=== PATIENT | female | born 1940 | race Caucasian/White ===

== ENCOUNTER → 2016-10-28 | Outpatient (CLI) | payer OTHER ==
[~2016-10-28] VITALS: Ht 157.5 cm; Wt 74.2 kg
[~2016-10-28] MED LIST: ALPR0.5T PO; AMLO-110 PO; ASPI81TA21 PO; ATOR-14 PO; ATOR-22 PO; B-COCAP2 PO; CEFAZOLIN 1000MG/55 ML D5W IV SCH; CITA20TA9 PO; CITA40TA12 PO; FISHOIL PO; FOLI400T41 PO; GEMF600T PO; HYDC25 PO; LACTATED RINGER'S 1000ML 1,000 ML IV SCH; LEVO100T35 PO; LEVO75TA PO; LOSA100T65 PO; LPRUNK PO; MAGN400T6 PO; METO100T14 PO; MULT-513 PO; OMEP20TA PO; SELENIUM PO
[2016-10-28 14:37] VITALS: Ht 157.5 cm; Wt 74.2 kg
--- NOTE | 2016-10-28 15:08 | PAT Medication Instructions ---
Service Date Oct 28, 2016. Current Home Medication List Alprazolam (Xanax), 0.5 MG PO Q12HR PRN Aspirin Enteric Coated (Ecotrin Or Generic), 81 MG PO HS Atorvastatin (Lipitor), 20 MG PO QPM Citalopram Hydrobromide (Celexa), 40 MG PO HS Gemfibrozil (Lopid), 600 MG PO BID Hydrochlorothiazide (Hctz *), 1 TAB PO QAM Levothyroxine Sodium (Synthroid), 75 MCG PO QAM Magnesium Oxide (Mag-Ox), 400 MG PO QAM Metoprolol Tartrate (Lopressor Unknown Dose), 100 MG PO QAM Metoprolol Tartrate (Lopressor Unknown Dose), 50 MG PO QPM Omeprazole (Omeprazole), 1 TAB PO QAM Medication Instructions For Your Scheduled Surgery - Hold the following medications the morning of surgery: Hydrochlorothiazide (Hctz *), 1 TAB PO QAM Gemfibrozil (Lopid), 600 MG PO BID - Take the following medications the morning of surgery with a sip of water: Omeprazole (Omeprazole), 1 TAB PO QAM Metoprolol Tartrate (Lopressor Unknown Dose), 100 MG PO QAM Magnesium Oxide (Mag-Ox), 400 MG PO QAM Levothyroxine Sodium (Synthroid), 75 MCG PO QAM Alprazolam (Xanax), 0.5 MG PO Q12HR PRN (if needed) - Hold the following medications as scheduled the night before surgery: Gemfibrozil (Lopid), 600 MG PO BID - Take the following medications as scheduled the night before surgery: Metoprolol Tartrate (Lopressor Unknown Dose), 50 MG PO QPM Citalopram Hydrobromide (Celexa), 40 MG PO HS Atorvastatin (Lipitor), 20 MG PO QPM Alprazolam (Xanax), 0.5 MG PO Q12HR PRN (if needed) Aspirin Enteric Coated (Ecotrin Or Generic), 81 MG PO HS (okay to continue per surgeon) If you have any questions please call us at [phone] or [phone] or [phone]
[2016-10-28 16:19] LABS: BASO % 0.6 %; BASO ABS # 0.04 K/uL (0-0.2); COMPLETE YES; EOS % 2.9 %; HEMATOCRIT 38.4 % (37-47); IG% 0.3 %; LYMPH ABS # 1.78 K/uL (1.2-3.4); MEAN CELL VOLUME 86.5 fL (80-100); MEAN CORPUSCULAR HEMOGLOBIN 29.3 pg (25-34); MEAN CORPUSCULAR HGB CONC 33.9 g/dl (32-36); MEAN PLATELET VOLUME 8.4 fL (7.4-10.4); NEUT % 56.2 %; PLATELET COUNT 420 K/uL (130-400); RED BLOOD COUNT 4.44 M/uL (4.2-5.4)
[2016-10-28 16:19] LABS: URINE APPEARANCE CLEAR (CLEAR); URINE BILIRUBIN NEG (NEG); URINE COLOR YELLOW; URINE EPITHELIAL CELL AUTO 20-30 /lpf (0-5); URINE NITRITE NEG (NEG); URINE PH 7.5 (4.5-7.5); UROBILINOGEN NEG (NEG)
[2016-10-28 16:21] LABS: MANUAL MICROSCOPIC REQUIRED? NO; REVIEW REQ? NO
--- NOTE | 2016-10-28 16:21 | DIAGNOSTIC IMAGING REPORT ---
CHEST PREADMISSION(PA/LAT) CLINICAL HISTORY: 75 years-old Female presenting with preadmission chest x-ray. TECHNIQUE: PA and lateral views of the chest were obtained. COMPARISON: None. FINDINGS: Cardiomediastinal silhouette normal. Lungs and pleural spaces clear. Osseous structures and upper abdomen normal. IMPRESSION: 1. No acute cardiopulmonary disease. Electronically signed by: Gerhard Townsend M.D. 10/28/2016 4:20 PM Dictated Date/Time: 10/28/2016 4:19 PM
[2016-10-28 16:27] LABS: BUN/CREATININE RATIO 11.2 (10-20); CREATININE 0.73 mg/dl (0.60-1.20); POTASSIUM 3.5 mmol/L (3.5-5.1)
== END | disposition home or self-care (01) ==
LOC: C.LAB 08:00 → EDSTATUS 11-16 12:15
PROVIDERS: ATTEND Orthopaedic Surgery Orthopaedic Surgery of the Spine
DX: Z01.810 Encounter for preprocedural cardiovascular examination (principal); Z01.812 Encounter for preprocedural laboratory examination

== ENCOUNTER 2017-03-08 10:14 | Inpatient (IN) | payer OTHER ==
[2017-01-26 13:41] VITALS: BMI 29.0
[~2017-03-08] VITALS: Ht 157.5 cm; Wt 72.3 kg
[2017-03-08] VITALS (9 sets, daily range): BP systolic 105–180; BP diastolic 60–99; PULSE 66–82; TEMP 36.2–37.1; O2SAT 93–100; Ht 157.5 cm; Wt 72.3 kg
[~2017-03-08 10:14] MED LIST changes: -ATOR-14 PO; +ATROPINE SULFATE 0.1 MG/ML 5ML SYR IV PRN; -B-COCAP2 PO; -CEFAZOLIN 1000MG/55 ML D5W IV SCH; -CITA20TA9 PO; +EpHEDrine SULFATE INJ 50 MG/ML AMP IV PRN; +FENTANYL CITRATE INJ 50 MCG/1 ML 2 ML VIAL IV PRN; -FISHOIL PO; -FOLI400T41 PO; -HYDC25 PO; +HYDROmorphone INJ 1 MG/ML SYR IV PRN; +LABETALOL HCL IV 5 MG/ML 20ML IV PRN; -LEVO100T35 PO; -LPRUNK PO; +MEPERIDINE HCL 25 MG/ML CARP IV PRN; -MULT-513 PO; +ONDANSETRON INJ 2 MG/ML 2 ML VIAL IV PRN; -SELENIUM PO
[2017-03-08] MEDS ORDERED: MIDAZOLAM HCL 1 MG/ML 2ML VIAL ONE (10:34)
[2017-03-08] MEDS ORDERED: FENTANYL CITRATE INJ 50 MCG/1 ML 2 ML VIAL ONE ×3 (10:34→12:38)
[2017-03-08] MEDS ORDERED: IBUP-103 PO (10:39)
--- NOTE | 2017-03-08 10:43 | History & Physical Bridge Note ---
H&P Re-Evaluation Bridge Note: I have examined the patient, reviewed the History & Physical and in the interval since the performance of the History & Physical I have noted the following changes of clinical significance: No changes noted
--- NOTE | 2017-03-08 10:45 | History and Physical ---
History & Physical Date Mar 08, 2017. Chief Complaint Back and leg pain History of Present Illness The patient is a 76 year old female with complaints of back and leg pain Additional History Hepatic Disease: No Endocrine Disorder: No Kidney Disease: No Hypertension: Yes Heart Disease: No Bleeding Tendencies: No Infectious Diseases: No Allergies Coded Allergies: Sulfa Drugs (Verified Allergy, Unknown, RASH , 03/08/17) Home Medications Scheduled Alprazolam (Xanax), 0.5 MG PO Q12HR PRN Amlodipine (Norvasc), 5 MG PO QAM Aspirin Enteric Coated (Ecotrin Or Generic), 81 MG PO HS Atorvastatin (Lipitor), 20 MG PO HS Citalopram Hydrobromide (Celexa), 40 MG PO HS Gemfibrozil (Lopid), 600 MG PO BID Ibuprofen Tab (Advil), 400-600 MG PO Q6H Levothyroxine Sodium (Synthroid), 75 MCG PO QAM Losartan Potassium (Cozaar), 100 MG PO QAM Magnesium Oxide (Mag-Ox), 400 MG PO QAM Metoprolol Tartrate (Lopressor) (Lopressor), 100 MG PO QAM Metoprolol Tartrate (Lopressor) (Lopressor), 50 MG PO HS Omeprazole (Omeprazole), 20 MG PO QAM Physical Examination Skin: warm/dry, no rash Eyes: normal inspection, EOMI, sclerae normal ENT: normal ENT inspection, pharynx normal Head: normocephalic, atraumatic Neck: supple, no adenopathy, trachea midline Respiratory/Chest: lungs clear, normal breath sounds, no respiratory distress Cardiovascular: regular rate, rhythm, no edema, no murmur Abdomen / GI: normal bowel sounds, non tender Back: normal inspection Extremities: normal inspection, normal range of motion Neurologic/Psych: no motor/sensory deficits, alert, normal reflexes, oriented x 3 Diagnosis Lumbar spinal stenosis with spondylolisthesis Plan of Treatment L3 to L5 lumbar laminectomy decompression with pedicle screw fixation placement of interbody device. Posterior lateral fusion L3 to L5 with autograft allograft and BMP
[2017-03-08] MEDS ORDERED: BUPIVACAINE/EPINEPHRINE 0.5% MPF 1:200,000 30 ML VIAL ONE (11:05)
[2017-03-08] MEDS ORDERED: BACITRACIN 50000 UNIT VIAL ONE (11:06)
[2017-03-08] MEDS ORDERED: CEFAZOLIN SOD 2000MG/10 ML IV PUSH IV ONE (11:14)
[2017-03-08] MEDS ORDERED: NURSING VERBAL MED ORDER STA (11:26)
[2017-03-08] MEDS ORDERED: HYDROmorphone INJ 2 MG/ML SYR/VIAL ONE ×2 (11:47→13:22)
[2017-03-08] MEDS ORDERED: PROPOFOL IV EMULSION 10 MG/ML 20 ML VIAL IV ONE (12:01)
[2017-03-08] MEDS ORDERED: LIDOCAINE HCL 2% 2 ML VIAL (20MG/ML) ONE (12:01)
[2017-03-08] MEDS ORDERED: DEXAMETHASONE SOD INJ 4 MG/ML VIAL ONE (12:01)
[2017-03-08] MEDS ORDERED: FLOSEAL HEMOSTATIC MATRIX 10ML TOP ONE (13:14)
[2017-03-08] MEDS ORDERED: LORAZEPAM INJ 0.5 MG in SYRINGE 0 ML IV PRN (13:15)
[2017-03-08] MEDS ORDERED: ALUMINUM/MAGNESIUM SUSP 30 ML UDC PO PRN (13:15)
[2017-03-08] MEDS ORDERED: MAGNESIUM HYDROXIDE SUSP 30 ML UDC PO PRN (13:15)
[2017-03-08] MEDS ORDERED: METOCLOPRAMIDE HCL INJ 5 MG/ML 2 ML VIAL IV PRN (13:15)
[2017-03-08] MEDS ORDERED: ONDANSETRON INJ 2 MG/ML 2 ML VIAL IV PRN (13:15)
[2017-03-08] MEDS ORDERED: PROMETHAZINE HCL INJ 12.5 MG in SODIUM CHLORIDE 0.9% 50ML 50 ML IV PRN (13:15)
[2017-03-08] MEDS ORDERED: DO NOT ADMINISTER FLU VACCINE PRN ×3 (13:15)
[2017-03-08] MEDS ORDERED: hydrOXYzine HCL 25 MG TAB PO PRN (13:15)
[2017-03-08] MEDS ORDERED: BISACODYL 10 MG SUPP PR PRN (13:15)
[2017-03-08] MEDS ORDERED: ACETAMINOPHEN 500 MG TAB PO PRN (13:15)
[2017-03-08] MEDS ORDERED: SODIUM CHLORIDE 0.9% 1000ML 1,000 ML IV SCH (13:15)
[2017-03-08] MEDS ORDERED: ACETAMINOPHEN IV 100 ML IV PRN (13:15)
[2017-03-08] MEDS ORDERED: DO NOT ADMINISTER PNEUMOCOCCAL VACCINE PRN ×2 (13:15)
[2017-03-08] MEDS ORDERED: FAMOTIDINE 20 MG TAB PO PRN (13:15)
[2017-03-08] MEDS ORDERED: NALOXONE HCL 0.4 MG/1 ML VIAL/CARP IV PRN ×2 (13:15)
[2017-03-08] MEDS ORDERED: LORAZEPAM 0.5 MG TAB PO PRN (13:15)
[2017-03-08] MEDS ORDERED: SOD PHOSPHATE/SOD BIPHOSPHATE ENEMA 132 ML BTL PR PRN (13:15)
--- NOTE | 2017-03-08 13:21 | [facility] Operative Report ---
Operative Report Operative Date Mar 08, 2017. Pre-Operative Diagnosis Spinal Stenosis, Spondylolisthesis Post-Operative Diagnosis Spinal Stenosis, Spondylolisthesis Procedure(s) Performed #1 lumbar decompression medial facetectomies foraminotomies L2 3 L3 4 L4 5. #2 posterior spinal fusion L3 4 L4 5. #3 placement posterior segmental instrumentation L3 4 L4 5. #4 interbody fusion L4 5. #5 placement peek cage 11 x 22 mm L4 5. #6 placement of locally harvested morcellized autograft in the posterior lateral gutters. #7 placement infuse collagen sponge combined Master graft in the posterior lateral gutters with ostial amp in the interbody space. Surgeon Dr. Davis Passport Application Examiner Surgeon(s) MISTY Matson Estimated Blood Loss 425 ml Findings Severe spinal stenosis with spondylolisthesis Specimens none per surgeon Description of Procedure Patient was met with preoperatively case discussed all questions addressed. After informed consent was obtained patient was taken to the operative suite underwent intubation placed in a prone position the Laurent table on top Dariel frame. All bony prominences were well-padded eyes inspected to ensure there is no external pressure placed upon them. This point the lumbar spine was prepped and draped nostril fashion. Sharp dissection with the assistance of Bovie cautery was performed onto an exposing the lamina and transverse processes of L3 L4-L5 bilaterally. From a caudal to cephalad fashion complete laminectomy of L4 L3 and partial laminectomy of L2 was performed addressing severe lateral recess and foraminal stenosis. After this complete pedicle screws are placed in L3 L4 L5 bilaterally with assistance of fluoroscopy the purposes kedar placed. Through a transforaminal approach on the left complete discectomy of L4 5 was performed and plate created to subcortical bleeding bone and a 11 x 22 mm peek cage filled with ostial amp tapped in position. The rods were then compressed locked and final position bilaterally. A cross-link was locked in position. Transverse processes of L3 L4-L5 burred to subcortical bleeding bone. Infuse collagen sponge mask graft locally harvested morcellized autograft was placed in the posterior lateral gutters. 15 round AUGUSTUS drain inserted. Incision was then closed with 1 Vicryl in the fascia 2-0 Vicryl subcutaneous tediously 4 Monocryl for final skin closure Steri-Strips sterile dressings placed. Patient we can taken to PACU in stable condition. Please note Haley Chaney was present throughout the entire procedure involved in patient positioning complex portions of the surgery and final skin closure. I attest to the content of the Intraoperative Record and any orders documented therein. Any exceptions are noted below.
[2017-03-08] MEDS ORDERED: ONDANSETRON INJ 2 MG/ML 2 ML VIAL ONE (13:23)
[2017-03-08] MEDS ORDERED: GLYCOPYRROLATE INJ 0.2 MG/ML VIAL ONE (13:23)
[2017-03-08] MEDS ORDERED: NEOSTIGMINE METHYLSULFATE 1 MG/ML 10ML VIAL ONE (13:23)
[2017-03-08] MEDS ORDERED: KETOROLAC TROMETHAMINE 30 MG/ML VIAL ONE (13:23)
[2017-03-08] MEDS ORDERED: ROCURONIUM BROMIDE 10 MG/ML 5 ML VIAL IV ONE (13:23)
--- NOTE | 2017-03-08 13:30 | DIAGNOSTIC IMAGING REPORT ---
INTRAOPERATIVE LUMBAR SPINE 2 VIEWS CLINICAL HISTORY: Spinal fusion COMPARISON STUDY: Outside MRI dated 09/24/2016 FINDINGS: 20 seconds of fluoroscopic time was utilized. 2 intraoperative fluoroscopic spot films are provided for interpretation. There are postsurgical changes of a discectomy and interbody fusion at the L4-5 level. There is a grade 1 spondylolisthesis of L3 on L4. There is posterior spinal fusion with pedicle screws at the L3, L4 and L5 levels with adjoining spinal rods. IMPRESSION: Postsurgical changes as described above. Electronically signed by: Glenn Chappell M.D. 03/08/2017 1:29 PM Dictated Date/Time: 03/08/2017 1:28 PM
[2017-03-08] MEDS: HYDROmorphone HCL 0.5MG/ML 50 ML CASSETTE IV PRN ×3 (14:12→23:03)
[2017-03-08] MEDS ORDERED: ALBUT/IPRATROP 3MG/0.5MG NEB 3 ML VIAL INH ONE (14:30)
--- NOTE | 2017-03-08 14:53 | Anesthesiology Progress Note ---
Anesthesia Post Op Note Date & Time Mar 08, 2017 at 14:53 Vital Signs Pain Intensity: 0 Vital Signs Past 12 Hours Date Time Temp Pulse Resp B/P (MAP) Pulse Ox O2 Delivery O2 Flow Rate FiO2 03/08/17 14:45 68 16 108/65 99 Nasal Cannula 4 03/08/17 14:35 69 16 112/54 99 Nasal Cannula 4 03/08/17 14:27 66 14 100 Mask 13.0 03/08/17 14:25 63 16 132/71 100 Oxymask 15 03/08/17 14:15 66 14 132/62 100 Oxymask 15 03/08/17 14:05 72 12 158/85 99 Oxymask 15 03/08/17 13:55 63 12 127/64 100 Oxymask 15 03/08/17 13:45 66 13 128/62 100 Oxymask 15 03/08/17 13:36 36.8 59 14 110/65 96 Oxymask 15 03/08/17 10:25 36.5 69 20 180/99 96 Room Air Notes Mental Status: alert / awake / arousable, participated in evaluation Pt Amnestic to Procedure: Yes Nausea / Vomiting: adequately controlled Pain: adequately controlled Airway Patency, RR, SpO2: stable & adequate BP & HR: stable & adequate Hydration State: stable & adequate Anesthetic Complications: no major complications apparent
[2017-03-08] MEDS: SODIUM CHLORIDE 0.9% 1000ML 1,000 ML IV SCH ×2 (16:18→23:37)
[2017-03-08] MEDS ORDERED: INFLUENZA VACCINE HIGH DOSE 65+ 0.5 ML SYR IM. ONE (16:45)
[2017-03-08] MEDS ORDERED: INFLUENZA ADMINISTRATION CHARGE ONE (16:45)
[2017-03-08] MEDS ORDERED: NURSING DECISION MEDICATION ORDER SCH (18:45)
[2017-03-08] MEDS ORDERED: COUGH DROP (SUGAR FREE) LOZ 24 LOZ/1 BOX PO PRN (19:00)
[2017-03-08] MEDS: DEXAMETHASONE INJ 6 MG in SYRINGE 0 ML IV SCH (19:34)
[2017-03-08] MEDS: CEFAZOLIN IV 2,000 MG in SYRINGE 0 ML IV SCH (19:34)
[2017-03-08] MEDS: ATORVASTATIN 20 MG TAB PO SCH (20:48)
[2017-03-08] MEDS: METOPROLOL TARTRATE 50 MG TAB PO SCH (20:48)
[2017-03-08] MEDS: GEMFIBROZIL 600 MG TAB PO SCH (20:48)
[2017-03-08] MEDS: DOCUSATE SODIUM/SENNA 50/8.6MG TAB PO SCH (20:48)
[2017-03-08] MEDS: CITALOPRAM 40 MG TAB PO SCH (20:48)
[2017-03-08] MEDS: ASPIRIN 81 MG ECTAB PO SCH (20:48)
[2017-03-09] VITALS (8 sets, daily range): BP systolic 100–133; BP diastolic 65–79; PULSE 67–84; TEMP 36.4–37.2; O2SAT 91–94
[2017-03-09] MEDS: DEXAMETHASONE INJ 6 MG in SYRINGE 0 ML IV SCH ×2 (04:11→12:04)
[2017-03-09] MEDS: CEFAZOLIN IV 2,000 MG in SYRINGE 0 ML IV SCH (04:11)
[2017-03-09] MEDS: LEVOTHYROXINE 75 MCG TAB PO SCH (05:28)
[2017-03-09] MEDS ORDERED: NURSING DECISION MEDICATION ORDER SCH (05:45)
[2017-03-09] MEDS ORDERED: DC PCA SCH (06:00)
[2017-03-09] MEDS ORDERED: HYDROmorphone INJ 0.5 MG/0.5 ML SYR IV PRN (06:00)
[2017-03-09 06:22] LABS: HEMATOCRIT 26.7 % (37-47); IG% 0.3 %; LYMPH % 4.8 %; LYMPH ABS # 0.65 K/uL (1.2-3.4); MEAN CELL VOLUME 88.7 fL (80-100); MEAN CORPUSCULAR HEMOGLOBIN 29.2 pg (25-34); MEAN PLATELET VOLUME 8.3 fL (7.4-10.4); MONO % 3.4 %; NEUT % 91.5 %; PLATELET COUNT 261 K/uL (130-400); RED BLOOD COUNT 3.01 M/uL (4.2-5.4); WHITE BLOOD COUNT 13.65 K/uL (4.8-10.8)
[2017-03-09 06:54] LABS: COMPLETE YES
[2017-03-09 07:01] LABS: BUN/CREATININE RATIO 19.5 (10-20); CREATININE 0.7 mg/dl (0.60-1.20)
--- NOTE | 2017-03-09 07:51 | Anesthesiology Progress Note ---
Anesthesia Post Op Note Date & Time Mar 09, 2017 at 07:51 Vital Signs Pain Intensity: 0.0 Vital Signs Past 12 Hours Date Time Temp Pulse Resp B/P (MAP) Pulse Ox O2 Delivery O2 Flow Rate FiO2 03/09/17 07:31 37.0 78 16 116/68 (84) 93 Room Air 03/09/17 03:48 36.9 84 17 122/72 (89) 94 Room Air 03/08/17 23:35 Room Air 03/08/17 23:20 37.0 82 16 120/74 (89) 95 Room Air 03/08/17 20:37 36.7 81 18 120/60 (80) 93 Room Air Notes Mental Status: alert / awake / arousable, participated in evaluation Pt Amnestic to Procedure: Yes Nausea / Vomiting: adequately controlled Pain: adequately controlled Airway Patency, RR, SpO2: stable & adequate BP & HR: stable & adequate Hydration State: stable & adequate Anesthetic Complications: no major complications apparent
[2017-03-09] MEDS: GEMFIBROZIL 600 MG TAB PO SCH ×2 (08:41→20:39)
[2017-03-09] MEDS: LOSARTAN POTASSIUM 50 MG TAB PO SCH (08:42)
[2017-03-09] MEDS: AMLODIPINE BESYLATE 5 MG TAB PO SCH (08:42)
[2017-03-09] MEDS: MAGNESIUM OXIDE 400 MG TAB PO SCH (08:42)
[2017-03-09] MEDS: PANTOprazole SOD 40 MG TAB PO SCH (08:43)
[2017-03-09] MEDS: METOPROLOL TARTRATE 100 MG TAB PO SCH (08:43)
--- NOTE | 2017-03-09 10:01 | Clinical Documentation Query ---
MELANIE Pollard : CLINICAL DOCUMENTATION QUERIES QUERY 1 OF 2 Patient is a 76 year old female who underwent lumbar decompression, posterior and interbody fusion with cage, autograft and Master graft. Preoperative hemoglobin and hematocrit were 13.0 g/dl and 38.4 g/dl on 10/28/16. POD #1, repeat values are 8.8 g/dl and 26.7%. EBL for the procedure was 425 ml's with subsequently documented losses totaling an additional 360 ml's to date. She is being monitored with serial hematology and I/O including drain outputs. In your clinical opinion is this patient being managed for: ( ) Acute blood loss anemia ( ) Not Agree ( ) Other explanation of clinical findings (Please Explain) ( ) Unable to determine (Please Define) ( ) Need to Discuss The medical record reflects the following clinical findings, treatment, and risk factors. Clinical Indicators: As above Treatment:She is being monitored with serial hematology and I/O including drain outputs. Risk Factors: Perioperative blood losses QUERY 2 OF 2 H&P notes only a history of hypertension in addition to lumbar stenosis. However, home medication list includes the following: Alprazolam (Xanax), 0.5 MG PO Q12HR PRN Amlodipine (Norvasc), 5 MG PO QAM Aspirin Enteric Coated (Ecotrin Or Generic), 81 MG PO HS Atorvastatin (Lipitor), 20 MG PO HS Citalopram Hydrobromide (Celexa), 40 MG PO HS Gemfibrozil (Lopid), 600 MG PO BID Ibuprofen Tab (Advil), 400-600 MG PO Q6H Levothyroxine Sodium (Synthroid), 75 MCG PO QAM Losartan Potassium (Cozaar), 100 MG PO QAM Magnesium Oxide (Mag-Ox), 400 MG PO QAM Metoprolol Tartrate (Lopressor) (Lopressor), 100 MG PO QAM Metoprolol Tartrate (Lopressor) (Lopressor), 50 MG PO HS Omeprazole (Omeprazole), 20 MG PO QAM In your clinical opinion is this patient being managed for: ( ) OA, Anxiety, Depression, GERD, Hypercholesterolemia, Hypothyroidism ( ) Not Agree ( ) Other explanation of clinical findings (Please Explain) ( ) Unable to determine (Please Define) ( ) Need to Discuss The medical record reflects the following clinical findings, treatment, and risk factors. Clinical Indicators: As above Treatment: As above Risk Factors: Age Please clarify and document your clinical opinion in the progress notes and discharge summary. Terms such as "probable", "suspected", "likely", "questionable", "possible", or "still to be ruled out" are acceptable. IF IN AGREEMENT, YOU MUST DOCUMENT ABOVE DIAGNOSTIC STATEMENT IN DAILY PROGRESS NOTES AND DISCHARGE SUMMARY. This document is not part of the patient's record. Thank You, Duncan Erazo, RN [phone]
[2017-03-09] MEDS ORDERED: RXC5 PO (11:01)
--- NOTE | 2017-03-09 11:01 | Discharge Instructions ---
Discharge Instructions Date of Service Mar 09, 2017. Admission Reason for Admission: Lumbar Spinal Stenosis Discharge Discharge Diagnosis / Problem: lumbar stenosis Discharge Goals Goal(s): Improve function Activity Recommendations Activity Limitations: per Instructions/Follow-up section . Instructions / Follow-Up Instructions / Follow-Up ACTIVITY RECOMMENDATIONS: SELF CARE INSTRUCTIONS AFTER THORACIC/LUMBAR FUSIONS 1. You may walk to your tolerance. It is good exercise for your legs and back. Expect some back and intermittent leg aches and pains. 2. You may perform "counter-top" level activities (make a sandwich, delaney with a project, etc.). 3. No bending or lifting of more than 10 pounds or back twisting of any nature (roll like a log when turning in bed). 4. You may ride in a car for 20-30 minutes at a time. No driving until after your first visit with your doctor. 5. Frequent changes of position and restricting sitting to 30 minutes at a time will help limit the amount of back spasms and stiffness you may experience. 6. You may discontinue the use of ambulatory aids (cane, crutches, etc.) once your strength and confidence allow. 7. You may concession stand attendant the shower and let water strike your incision when you arrive home at least once daily. Do not take a tub bath, sit in a hot tub or go into a swimming pool until after your first recheck in the office. SPECIAL CARE INSTRUCTIONS: VERY IMPORTANT TO READ AND REVIEW A. Your surgical incision has been closed with a cosmetic suture under the skin that will dissolve in about 6 weeks. In 14 days, you can use a pair of clean scissors and cut the suture that is left outside of the skin at the ends of your incision. 1. The small skin tapes can be removed 7 days after surgery if they have not fallen off by that point. 2. You may keep the wound open to air as much as possible to promote healing after post-op day number 5 unless told otherwise by your doctor. 3. If you think the wound looks like it is becoming infected (redness or worsening drainage) and/or you are experiencing fever, chill or worsening back pain and muscle spasms, contact the office so that we may evaluate you as soon as possible. B. Complications are uncommon, but please contact us if you have any signs or symptoms of: 1. wound infection (fever higher than 102.5 degrees F, redness, separation of wound, drainage, or increasing pain from the incision) 2. blood clots in legs (pain, swelling, redness and warmth in legs) 3. urinary tract infection (fever higher than 102.5 degrees F, burning upon urination or increased frequency of urination) 4. nerve problems (inability to walk on your toes or heels, numbness, loss of bowel or bladder control) 5. any other symptoms that concern you C. Please call the office at if you have any concerns or questions about your operation or recovery. D. No smoking! Smoking drastically decreases the chance of a solid fusion. E. Do not take any anti-inflammatory medications (Indocin, Advil, Motrin, Aspirin, Naprosyn, etc.) as these may inhibit the chance of a solid fusion. Tylenol is okay to take for pain. MANAGING PAIN AFTER SPINAL SURGERY 1. Narcotic medication is intended for short-term use and will be provided for surgical pain. Surgical pain usually lasts for a period of 4-6 weeks. Narcotic medication includes Percocet, Vicodin, Darvocet, Tylenol #3 or Lortab. 2. Longer-term pain is more appropriately treated with non-narcotic medication such as Tylenol ES. 3. Muscle spasm is not appropriately treated with narcotics. Muscle relaxers such as Soma, Flexeril or Skelaxin can be used along with Tylenol ES. 4. Remember that we all live with some "aches and pains". This is not unusual or uncommon after an injury or as we get older. a. Back pain is expected and may include muscle spasms for 4 to 6 weeks after surgery. The pain should gradually improve. If the pain worsens for no apparent reason, please contact the office. b. Intermittent leg pain may also be experienced and should not be concerned about unless it worsens for no apparent reason. If so, please contact the office. 5. We will provide appropriate medication within the normal guidelines of their prescribed use. We will also be very cautious and aware of potential abuse and extended duration of patients' medication needs. a. Pain medications are for your comfort and to assist with sleep and rest so that the tissue can heal. They are not provided in order to return to normal activity and should not be used through the day. To do so or worsening pain at night can result from ongoing tissue damage and development of tolerance to the prescribed medicine. 6. Please allow 2-3 days to process refills. Prescriptions will not be mailed but must be picked up at the office. FOLLOW UP VISIT: Keep your scheduled follow-up appointment. Any questions, please call the office at . Current Hospital Diet Patient's current hospital diet: Regular Diet Discharge Diet Recommended Diet: Regular Diet Procedures Procedures Performed: L3-L5 Lumbar Laminectomy, Decompression, Pedicle Screw Fixation, Placement of Interbody Device; L3-L5 Posterolateral Fusion, Application of Allograft, Bone Morphogenetic Protein Pending Studies Studies pending at discharge: no Medical Emergencies . Who to Call and When: Medical Emergencies: If at any time you feel your situation is an emergency, please call 911 immediately. . Non-Emergent Contact Non-Emergency issues call your: Primary Care Provider . "Provider Documentation" section prepared by Brennen Davis. . VTE Core Measure Inpt VTE Proph given/why not?: Caesar Andrade, [facility]
--- NOTE | 2017-03-09 11:17 | Progress Note ---
Progress Note Date of Service Mar 09, 2017. Progress Note Patient is status post lumbar decompression fusion. Today she was complaining without difficulty. Leg symptoms markedly improved. Vital signs are stable. AUGUSTUS drain decreasing appropriate. Assessment status post lumbar depression fusion replant this time anticipate discharge home the next day or so.
[2017-03-09] MEDS: OXYCODONE HCL IR 5 MG TAB (IMMEDIATE RELEASE) PO PRN ×2 (12:18→23:53)
[2017-03-09] MEDS: ATORVASTATIN 20 MG TAB PO SCH (21:43)
[2017-03-09] MEDS: METOPROLOL TARTRATE 50 MG TAB PO SCH (21:43)
[2017-03-09] MEDS: ASPIRIN 81 MG ECTAB PO SCH (21:44)
[2017-03-09] MEDS: DOCUSATE SODIUM/SENNA 50/8.6MG TAB PO SCH (21:44)
[2017-03-09] MEDS: CITALOPRAM 40 MG TAB PO SCH (21:44)
[2017-03-10] VITALS (11 sets, daily range): BP systolic 107–138; BP diastolic 61–80; PULSE 66–78; TEMP 36.4–37.3; O2SAT 93–100
[2017-03-10] MEDS: POLYETHYLENE (MIRALAX) 17 GM PACK PO SCH ×3 (06:03→17:24)
[2017-03-10] MEDS: LEVOTHYROXINE 75 MCG TAB PO SCH (06:03)
[2017-03-10] MEDS: LOSARTAN POTASSIUM 50 MG TAB PO SCH (09:00)
[2017-03-10] MEDS: GEMFIBROZIL 600 MG TAB PO SCH ×2 (09:00→21:07)
[2017-03-10] MEDS: MAGNESIUM OXIDE 400 MG TAB PO SCH (09:01)
[2017-03-10] MEDS: METOPROLOL TARTRATE 100 MG TAB PO SCH (09:01)
[2017-03-10] MEDS: AMLODIPINE BESYLATE 5 MG TAB PO SCH (09:02)
[2017-03-10] MEDS: PANTOprazole SOD 40 MG TAB PO SCH (09:02)
--- NOTE | 2017-03-10 12:57 | Progress Note ---
Progress Note Date of Service Mar 10, 2017. Progress Note Patient is postop day #2 lumbar decompression fusion. Her back pain is controlled. Again leg symptoms improved. She denies any weakness or shortness of breath. On exam she sitting in chair at bedside as good strength testing appears comfortable assessment status post lumbar depression fusion replant this time will continue to advance her bowel regiment monitor her AUGUSTUS output hopefully discharge home tomorrow.
[2017-03-10] MEDS ORDERED: LORAZEPAM 2 MG/ML 1 ML VIAL **EMERGENCY USE ONE (14:43)
[2017-03-10] MEDS ORDERED: NURSING VERBAL MED ORDER ONE ×2 (14:45→17:30)
[2017-03-10 14:58] LABS: HEMATOCRIT 27.2 % (37-47); MEAN CELL VOLUME 89.8 fL (80-100); MEAN PLATELET VOLUME 8.2 fL (7.4-10.4); PLATELET COUNT 316 K/uL (130-400); RED BLOOD COUNT 3.03 M/uL (4.2-5.4); WHITE BLOOD COUNT 19.69 K/uL (4.8-10.8)
[2017-03-10] MEDS ORDERED: LORAZEPAM INJ 2 MG in SYRINGE 1 ML IV ONE (15:00)
--- NOTE | 2017-03-10 15:06 | DIAGNOSTIC IMAGING REPORT ---
CHEST ONE VIEW PORTABLE CLINICAL HISTORY: Respiratory arrest COMPARISON STUDY: 10/28/2016 FINDINGS: The heart is mildly enlarged. There is aortic tortuosity. There is mild mediastinal fullness a finding which may be secondary to the AP portable technique. There is no lobar consolidation. There is no failure. There are no pleural effusions.[ IMPRESSION: AP portable study. No evidence of focal pulmonary consolidation. Mild mediastinal fullness, likely secondary to the AP technique. No evidence of overt failure. Electronically signed by: Glenn Chappell M.D. 03/10/2017 3:05 PM Dictated Date/Time: 03/10/2017 3:04 PM
[2017-03-10 15:08] LABS: INR 0.9 (0.9-1.1); PARTIAL THROMBOPLASTIN RATIO 0.9
[2017-03-10 15:10] LABS: MEAN CORPUSCULAR HGB CONC 33.5 g/dl (32-36)
--- NOTE | 2017-03-10 15:17 | DIAGNOSTIC IMAGING REPORT ---
CT HEAD WITHOUT CONTRAST (CT) CLINICAL HISTORY: CODE PURPLE UNRESPONSIVE PATIENT. MENTAL STATUS CHANGE. COMPARISON STUDY: No previous studies for comparison. TECHNIQUE: Axial CT of the brain is performed from the vertex to the skull base. IV contrast was not administered for this examination. A dose lowering technique was utilized adhering to the principles of ALARA. CT DOSE: 638.56 mGycm FINDINGS: No intra or extra-axial mass lesions are visualized. There is no CT evidence of acute cortical infarction. There is no evidence of midline shift. There is no acute hemorrhage. No calvarial fractures are visualized. If the patient's neurological status does not improve, an MRI of the brain might be considered in follow-up. There is no evidence of pathologic ventricular dilatation. There is no evidence of acute sinusitis IMPRESSION: No acute intracranial findings Electronically signed by: Glenn Chappell M.D. 03/10/2017 3:16 PM Dictated Date/Time: 03/10/2017 3:15 PM
[2017-03-10 15:22] LABS: ALT/SGPT 17 U/L (12-78); BLOOD UREA NITROGEN 19 mg/dl (7-18); BUN/CREATININE RATIO 19.6 (10-20); CALCIUM 8.3 mg/dl (8.5-10.1); CARBON DIOXIDE 24 mmol/L (21-32); CHLORIDE 95 mmol/L (98-107); CREATININE 0.98 mg/dl (0.60-1.20); GLUCOSE 127 mg/dl (70-99); MAGNESIUM 2.2 mg/dl (1.8-2.4); POTASSIUM 3.7 mmol/L (3.5-5.1); SODIUM 131 mmol/L (136-145)
[2017-03-10 15:28] LABS: ALKALINE PHOSPHATASE 56 U/L (45-117); AST/SGOT 29 U/L (15-37)
[2017-03-10] MEDS ORDERED: OPTIRAY 320 IV PRN (16:15)
--- NOTE | 2017-03-10 16:19 | DIAGNOSTIC IMAGING REPORT ---
CTA ANGIOGRAPHY OF THE HEAD CLINICAL HISTORY: Probable cerebrovascular accident. COMPARISON STUDY: Head CT performed earlier today. TECHNIQUE: Helical axial images of the head were obtained following uneventful intravenous administration of 113 cc of Optiray 320. A dose lowering technique was utilized adhering to the principles of ALARA. FINDINGS: The CTA of the neck will be reported separately. No acute intracranial hemorrhage, midline shift or mass effect is present. Ventricular system is normal. Basilar cisterns are patent. There are no extra-axial collections. Nasogastric tube is partially imaged. The bilateral M1, M2, A1 and A2 segments are patent. There is an anterior communicating artery. No abrupt vessel cutoff is identified. There is mild atherosclerotic plaque within the bilateral cavernous carotids. The posterior circulation is also intact. No aneurysm or dissection is identified within the intracranial vessels. IMPRESSION: Unremarkable CTA of the head. No vessel cut off or intracranial aneurysm. Electronically signed by: Doug Antoine M.D. 03/10/2017 4:18 PM Dictated Date/Time: 03/10/2017 4:12 PM
--- NOTE | 2017-03-10 16:22 | DIAGNOSTIC IMAGING REPORT ---
CT ANGIOGRAM OF THE NECK CLINICAL HISTORY: Change in mental status. COMPARISON STUDY: No priors. TECHNIQUE: Following the IV administration of 113 of Optiray 320, CT angiogram of the neck was performed from the aortic arch to the skull base. Images are reviewed in the axial, sagittal, and coronal planes. 3-D MIPS images are created and assessed. IV contrast was administered without complication. All measurements were calculated based on NASCET criteria. A dose lowering technique was utilized adhering to the principles of ALARA. The examination is modestly degraded by motion artifact. CT DOSE: 481.06 mGy.cm FINDINGS: Thoracic aorta: Visualized portions of the thoracic aorta are normal in caliber. The aortic arch demonstrates standard 3-vessel anatomy. Subclavian arteries: Widely patent bilaterally. Right carotid arterial system: The right common carotid artery is widely patent, as are the right internal and external carotid arteries. Left carotid arterial system: The left common carotid artery as well as the left internal and external carotid arteries are widely patent. Vertebral arteries: The vertebral arteries are widely patent and codominant. Intracranial vasculature: Intracranial vessels at the skull base are patent. See report of CT angiogram of the brain performed concurrently for detailed intracranial findings. Jugular veins: Widely patent bilaterally. Brain parenchyma: The visualized brain parenchyma the skull base is within normal limits. Lung apices: An nasal cannula is in place. Partially visualized upper lobe lung parenchyma appears clear. Soft tissues: The visualized pharyngeal soft tissues are normal in appearance noting angiographic phase technique. The oropharyngeal airway appears widely patent. The thyroid gland is markedly atrophic. The salivary glands are normal in appearance. No cervical lymphadenopathy is seen. Skeletal structures: The Skeletal structures are osteopenic. The visualized calvarium at the skull base is normal in appearance. The imaged cervical spine appears intact noting multilevel spondylosis. Sinuses and mastoids: There is evidence of previous paranasal sinus surgery. The visualized paranasal sinuses and mastoid air cells are clear. IMPRESSION: Unremarkable CT angiogram of the neck. Electronically signed by: Savage Mcconnell M.D. 03/10/2017 4:21 PM Dictated Date/Time: 03/10/2017 4:14 PM
--- NOTE | 2017-03-10 16:36 | Critical Care Consultation ---
Critical Care Consultation Date of Consultation: Mar 10, 2017. Attending Physician: Brennen Davis D.O. Reason for Consultation: code garcia History of Present Illness 76 yo F w/hx of HTN, HLD, Obesity, Hypothyroidism, Spinal stenosis, spondylolisthesis s/p Lumbar decompression/fusion POD [address] Davis 's. She tolerated procedure. Reportedly, patient's family alerted nursing that she needed assistance. Patient was found to be non-repsonsive , foaming at the mouth with fecal incontinence. Patient was given oxygen supplementation via NC 6L. Patient maintain adequate saturation throghout. Code garcia was called at the time. Critical Care team was consulted. Portable CXR was unremarkable. Head CT showed no acute abnormality Past Medical/Surgical History Hypertension Obesity Hyperlipidemia Severe Spinal stenosis, spondylolisthesis s/p Lumbar decompression/fusion Social History Smoking Status: Former Smoker Allergies Coded Allergies: Sulfa Drugs (Verified Allergy, Unknown, RASH , 03/08/17) Home Medications Scheduled Alprazolam (Xanax), 0.5 MG PO Q12HR PRN Amlodipine (Norvasc), 5 MG PO QAM Aspirin Enteric Coated (Ecotrin Or Generic), 81 MG PO HS Atorvastatin (Lipitor), 20 MG PO HS Citalopram Hydrobromide (Celexa), 40 MG PO HS Gemfibrozil (Lopid), 600 MG PO BID Ibuprofen Tab (Advil), 400-600 MG PO Q6H Levothyroxine Sodium (Synthroid), 75 MCG PO QAM Losartan Potassium (Cozaar), 100 MG PO QAM Magnesium Oxide (Mag-Ox), 400 MG PO QAM Metoprolol Tartrate (Lopressor) (Lopressor), 100 MG PO QAM Metoprolol Tartrate (Lopressor) (Lopressor), 50 MG PO HS Omeprazole (Omeprazole), 20 MG PO QAM Scheduled PRN Oxycodone HCl (Oxycodone HCl), 5-10 MG PO Q4H PRN for Moderate - severe pain Current Inpatient Medications Current Inpatient Medications Medications (Trade) Dose Ordered Sig/Prabhakar Route Start Time Stop Time Status Last Admin Dose Admin Promethazine HCl 12.5 mg/Sodium Chloride 50.5 ml @ 202 mls/hr Q6H PRN IV 03/08/17 13:15 04/07/17 13:14 Ondansetron HCl (Zofran Inj) 4 mg Q6H PRN IV 03/08/17 13:15 04/07/17 13:14 Metoclopramide HCl (Reglan Inj) 10 mg Q6H PRN IV 03/08/17 13:15 04/07/17 13:14 Lorazepam (Ativan Tab) 0.5 mg Q8H PRN PO 03/08/17 13:15 04/07/17 13:14 Lorazepam 0.5 mg/ Syringe 0.25 ml @ 1 mls/min Q8H PRN IV 03/08/17 13:15 04/07/17 13:14 Pneumococcal Polysaccharide Vaccine 1 ea PRN PRN N/A 03/08/17 13:15 04/07/17 13:14 Influenza Virus Vacc Triv Types A&B 1 ea PRN PRN N/A 03/08/17 13:15 04/07/17 13:14 Polyethylene (Miralax Powder Packet) 17 gm Q6 PO 03/10/17 06:00 04/09/17 05:59 03/10/17 11:32 17 GM Bisacodyl (Dulcolax Supp) 10 mg DAILY PRN MT 03/08/17 13:15 04/07/17 13:14 Magnesium Hydroxide (Milk Of Magnesia Susp) 30 ml DAILY PRN PO 03/08/17 13:15 04/07/17 13:14 03/10/17 11:32 30 ML Hydromorphone HCl (Dilaudid Inj) 0.5-1mg prn moder... Q3H PRN IV 03/09/17 06:00 03/23/17 05:59 Oxycodone HCl (Roxicodone Immediate Rel Tab) 5-10mg prn moderate to sev... Q4H PRN PO 03/09/17 06:00 03/23/17 05:59 03/09/17 23:53 5 MG Acetaminophen (Tylenol Tab) 1,000 mg Q8H PRN PO 03/08/17 13:15 04/07/17 13:14 Acetaminophen 100 ml @ 400 mls/hr Q8H PRN IV 03/08/17 13:15 04/07/17 13:14 Naloxone HCl (Narcan Inj) 0.1 mg Q5M PRN IV 03/08/17 13:15 04/07/17 13:14 Senna/Docusate Sodium (Senokot S Tab) 2 tab HS PO 03/08/17 21:00 04/07/17 20:59 03/09/17 21:44 2 TAB Sodium Biphosphate/ Sodium Phosphate (Fleet Enema) 132 ml ONE PRN MT 03/08/17 13:15 04/07/17 13:14 Hydroxyzine HCl (Vistaril Tab) 25 mg Q8H PRN PO 03/08/17 13:15 04/07/17 13:14 Al Hydroxide/Mg Hydroxide (Maalox Susp) 30 ml Q6H PRN PO 03/08/17 13:15 04/07/17 13:14 Famotidine (Pepcid Tab) 20 mg Q12 PRN PO 03/08/17 13:15 04/07/17 13:14 Diphenhydramine HCl (Benadryl Cap) 25 mg Q6H PRN PO 03/08/17 13:15 04/07/17 13:14 03/10/17 01:00 25 MG Amlodipine Besylate (Norvasc Tab) 5 mg QAM PO 03/09/17 09:00 04/08/17 08:59 03/10/17 09:02 5 MG Aspirin (Ecotrin Tab) 81 mg HS PO 03/08/17 21:00 04/07/17 20:59 03/09/17 21:44 81 MG Atorvastatin Calcium (Lipitor Tab) 20 mg HS PO 03/08/17 21:00 04/07/17 20:59 03/09/17 21:43 20 MG Citalopram Hydrobromide (celeXA TAB) 40 mg HS PO 03/08/17 21:00 04/07/17 20:59 03/09/17 21:44 40 MG Gemfibrozil (Lopid Tab) 600 mg BID PO 03/08/17 21:00 04/07/17 20:59 03/10/17 09:00 600 MG Levothyroxine Sodium (Synthroid Tab) 75 mcg DAILYBB PO 03/09/17 06:00 04/08/17 05:59 03/10/17 06:03 75 MCG Losartan Potassium (coZAAR TAB) 100 mg QAM PO 03/09/17 09:00 04/08/17 08:59 03/10/17 09:00 100 MG Magnesium Oxide (Mag-Ox Tab) 400 mg DAILY PO 03/09/17 09:00 04/08/17 08:59 03/10/17 09:01 400 MG Metoprolol Tartrate (Lopressor Tab) 50 mg HS PO 03/08/17 21:00 04/07/17 20:59 03/09/17 21:43 50 MG Metoprolol Tartrate (Lopressor Tab) 100 mg QAM PO 03/09/17 09:00 04/08/17 08:59 03/10/17 09:01 100 MG Pantoprazole Sodium (Protonix Tab) 40 mg QAM PO 03/09/17 09:00 04/08/17 08:59 03/10/17 09:02 40 MG Menthol (Nice Verito) 1 verito PRN PRN PO 03/08/17 19:00 04/07/17 18:59 03/08/17 19:34 1 VERITO Ioversol (Optiray 320) 113 ml UD PRN IV 03/10/17 16:15 03/14/17 16:14 Review of Systems could not assess due to patient's mental status Physical Exam Date Time Temp Pulse Resp B/P (MAP) Pulse Ox O2 Delivery O2 Flow Rate FiO2 03/10/17 15:13 75 100 15.0 03/10/17 11:51 36.9 68 14 138/72 (94) 94 Room Air 03/10/17 09:50 96 Room Air 03/10/17 08:59 71 128/80 (96) 03/10/17 08:00 37.3 68 14 126/70 (88) 96 Room Air 03/10/17 07:30 Room Air 03/10/17 06:21 36.4 66 16 120/74 (89) 99 Room Air 03/09/17 23:45 Room Air 03/09/17 23:08 36.4 72 18 133/79 (97) 91 Room Air 03/09/17 20:38 74 122/69 (86) 03/09/17 19:47 Room Air General Appearance: moderate distress, obese Head: normocephalic, atraumatic Eyes: PERRLA Neck: trachea midline, no stridor, supple Respiratory: no respiratory distress, rhonchi Cardiovasular: regular rate/rhythm, no murmur Abdomen: normal bowel sounds, no masses, no guarding Upper Extremities: no edema, no deformity Lower Extremities: no edema, no deformity Neuro: decreased LOC, focal weakness, other (Right facial droop, R UE drift) Laboratory Results Last 24 Hours Test 03/10/17 14:41 03/10/17 14:48 Bedside Glucose 141 mg/dl White Blood Count 19.69 K/uL Red Blood Count 3.03 M/uL Hemoglobin 9.1 g/dL Hematocrit 27.2 % Mean Corpuscular Volume 89.8 fL Mean Corpuscular Hemoglobin 30.0 pg Mean Corpuscular Hemoglobin Concent 33.5 g/dl RDW Standard Deviation 43.4 fL RDW Coefficient of Variation 13.3 % Platelet Count 316 K/uL Mean Platelet Volume 8.2 fL Prothrombin Time 10.0 SECONDS Prothromb Time International Ratio 0.9 Activated Partial Thromboplast Time 23.1 SECONDS Partial Thromboplastin Ratio 0.9 Sodium Level 131 mmol/L Potassium Level 3.7 mmol/L Chloride Level 95 mmol/L Carbon Dioxide Level 24 mmol/L Anion Gap 11.0 mmol/L Blood Urea Nitrogen 19 mg/dl Creatinine 0.98 mg/dl Est Creatinine Clear Calc Drug Dose 46.9 ml/min Estimated GFR () 65.9 Estimated GFR (Non- 56.8 BUN/Creatinine Ratio 19.6 Random Glucose 127 mg/dl Calcium Level 8.3 mg/dl Magnesium Level 2.2 mg/dl Total Bilirubin 0.4 mg/dl Direct Bilirubin 0.1 mg/dl Aspartate Amino Transf (AST/SGOT) 29 U/L Alanine Aminotransferase (ALT/SGPT) 17 U/L Alkaline Phosphatase 56 U/L Ammonia 32.4 umol/L Troponin I < 0.015 ng/ml Total Protein 6.4 gm/dl Albumin 3.4 gm/dl Diagnostic Results CT HEAD WITHOUT CONTRAST (CT) CLINICAL HISTORY: CODE PURPLE UNRESPONSIVE PATIENT. MENTAL STATUS CHANGE. COMPARISON STUDY: No previous studies for comparison. TECHNIQUE: Axial CT of the brain is performed from the vertex to the skull base. IV contrast was not administered for this examination. A dose lowering technique was utilized adhering to the principles of ALARA. CT DOSE: 638.56 mGycm FINDINGS: No intra or extra-axial mass lesions are visualized. There is no CT evidence of acute cortical infarction. There is no evidence of midline shift. There is no acute hemorrhage. No calvarial fractures are visualized. If the patient's neurological status does not improve, an MRI of the brain might be considered in follow-up. There is no evidence of pathologic ventricular dilatation. There is no evidence of acute sinusitis IMPRESSION: No acute intracranial findings CT ANGIOGRAM OF THE NECK CLINICAL HISTORY: Change in mental status. COMPARISON STUDY: No priors. TECHNIQUE: Following the IV administration of 113 of Optiray 320, CT angiogram of the neck was performed from the aortic arch to the skull base. Images are reviewed in the axial, sagittal, and coronal planes. 3-D MIPS images are created and assessed. IV contrast was administered without complication. All measurements were calculated based on NASCET criteria. A dose lowering technique was utilized adhering to the principles of ALARA. The examination is modestly degraded by motion artifact. CT DOSE: 481.06 mGy.cm FINDINGS: Thoracic aorta: Visualized portions of the thoracic aorta are normal in caliber. The aortic arch demonstrates standard 3-vessel anatomy. Subclavian arteries: Widely patent bilaterally. Right carotid arterial system: The right common carotid artery is widely patent, as are the right internal and external carotid arteries. Left carotid arterial system: The left common carotid artery as well as the left internal and external carotid arteries are widely patent. Vertebral arteries: The vertebral arteries are widely patent and codominant. Intracranial vasculature: Intracranial vessels at the skull base are patent. See report of CT angiogram of the brain performed concurrently for detailed intracranial findings. Jugular veins: Widely patent bilaterally. Brain parenchyma: The visualized brain parenchyma the skull base is within normal limits. Lung apices: An nasal cannula is in place. Partially visualized upper lobe lung parenchyma appears clear. Soft tissues: The visualized pharyngeal soft tissues are normal in appearance noting angiographic phase technique. The oropharyngeal airway appears widely patent. The thyroid gland is markedly atrophic. The salivary glands are normal in appearance. No cervical lymphadenopathy is seen. Skeletal structures: The Skeletal structures are osteopenic. The visualized calvarium at the skull base is normal in appearance. The imaged cervical spine appears intact noting multilevel spondylosis. Sinuses and mastoids: There is evidence of previous paranasal sinus surgery. The visualized paranasal sinuses and mastoid air cells are clear. IMPRESSION: Unremarkable CT angiogram of the neck. CT HEAD WITHOUT CONTRAST (CT) CLINICAL HISTORY: CODE PURPLE UNRESPONSIVE PATIENT. MENTAL STATUS CHANGE. COMPARISON STUDY: No previous studies for comparison. TECHNIQUE: Axial CT of the brain is performed from the vertex to the skull base. IV contrast was not administered for this examination. A dose lowering technique was utilized adhering to the principles of ALARA. CT DOSE: 638.56 mGycm FINDINGS: No intra or extra-axial mass lesions are visualized. There is no CT evidence of acute cortical infarction. There is no evidence of midline shift. There is no acute hemorrhage. No calvarial fractures are visualized. If the patient's neurological status does not improve, an MRI of the brain might be considered in follow-up. There is no evidence of pathologic ventricular dilatation. There is no evidence of acute sinusitis IMPRESSION: No acute intracranial findings CHEST ONE VIEW PORTABLE CLINICAL HISTORY: Respiratory arrest COMPARISON STUDY: 10/28/2016 FINDINGS: The heart is mildly enlarged. There is aortic tortuosity. There is mild mediastinal fullness a finding which may be secondary to the AP portable technique. There is no lobar consolidation. There is no failure. There are no pleural effusions.[ IMPRESSION: AP portable study. No evidence of focal pulmonary consolidation. Mild mediastinal fullness, likely secondary to the AP technique. No evidence of overt failure. INTRAOPERATIVE LUMBAR SPINE 2 VIEWS CLINICAL HISTORY: Spinal fusion COMPARISON STUDY: Outside MRI dated 09/24/2016 FINDINGS: 20 seconds of fluoroscopic time was utilized. 2 intraoperative fluoroscopic spot films are provided for interpretation. There are postsurgical changes of a discectomy and interbody fusion at the L4-5 level. There is a grade 1 spondylolisthesis of L3 on L4. There is posterior spinal fusion with pedicle screws at the L3, L4 and L5 levels with adjoining spinal rods. IMPRESSION: Postsurgical changes as described above. Assessment & Plan 76 yo F w/hx of HTN, HLD, Obesity, Hypothyroidism, Spinal stenosis, spondylolisthesis s/p Lumbar decompression/fusion POD 2 with episode of unresponsiveness with concomitant fecal incontinence, foaming from the mouth. Admit to Critical Care Unit GRADUATE FELLOW/Neuro: TIA vs. CVA vs. Seizure GCS: 6 Pupils: Pinpoint, reactive, Focal Signs: Right facial droop, Right UE weakness, drift EEG ordered MRI ordered CT head dated (03/10) : Result: no acute intracranial abnormality CTA (03/10): unremarkable Stroke Alert called Neurology consulted, F/u with Dr. Partida tmr for report Does not meet criteria for TPA due to recent surgery Respiratory: saturating well on non-rebreather, placed on oxy-mask, maintained saturation wean oxygen as tolerated Chest X-ray: Reviewed: No evidence of focal pulmonary consolidation. Cardiovascular: HTN, HLD BP Controlled Rhythm: Sinus EKG: NSR, nonspecific t wave abnl , QTc 418 F/u Troponin ASA 81 mg daily Continue Statin, Amlodipine, Lopressor Fluids/Renal: IV Fluids: Fluids from intravenous medications Garvey: Present GI/Nutrition: Prophylaxis: On PPI Bowel movements:1 PRN Milk of Magnesia, Dulcolax Endocrine: Last 24 hour glucose: Ranging 127 to 130 Continue Synthroid Hematology: Hemoglobin 9.1 DVT prophylaxis: ASA 81 mg daily, SCD's, TEDs further chemical prophylaxis contraindicated due to recent surgery Psych Citalopram, Trazodone held Infectious Disease/Immunology: stable Tmax: 36.9 Resident Physician Supervision Note: Dr. Garcia was resident physician during care of patient. I separately evaluated patient and did history and exam. I discussed the case with the resident and generally agree with the findings and plan. Patient had new onset seizure-like activity. Immediately afterwards the patient was unresponsive which prompted her to be transferred to the critical care unit for additional evaluation. In the postictal period as she was recovering she was found to have a right-sided facial droop and right-sided flaccid paralysis and a stroke alert was called. She was deemed not a candidate for TPA due to seizure activity as well as recent postop laminectomy. Initial CT scan did not reveal an acute intracranial hemorrhage. I discussed the case with the on-call stroke neurologist at [facility]. 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 A emergent CTA of the brain and neck was obtained, no vessel cutoff was noted. Patient was later seen by [facility] neurology. Later during the day she was back to her baseline without any evidence of facial droop, normal mental status, and 5 out of 5 strength without focal deficit. I have personally spent 45 minutes of critical care time in the direct management of this patient. This is a life/limb threatening event. This includes time spent evaluating patient, direct bedside care, chart review, placing orders, interpretation of diagnostic studies, discussion with consultants, patient, and family members, as well as other required patient management activities. This time is exclusive of all separately billable procedures, and teaching time and separate from and in addition to any other critical care service time. Documented By: Duncan Herman DO Resident Tracking Resident Involvement: Resident Care Provided Care Provided: Adult [facility]
--- NOTE | 2017-03-10 18:30 | DIAGNOSTIC IMAGING REPORT ---
ORBIT RADIOGRAPHS 3 VIEWS HISTORY: pre-MRI screening. COMPARISON: Head CT March 10, 2017. FINDINGS: There are no radiopaque foreign bodies identified within the orbits. IMPRESSION: No radiopaque foreign bodies identified within the orbits. Electronically signed by: Doug Antoine M.D. 03/10/2017 6:29 PM Dictated Date/Time: 03/10/2017 6:28 PM
[2017-03-10] MEDS: METOPROLOL TARTRATE 50 MG TAB PO SCH (21:07)
[2017-03-10] MEDS: CITALOPRAM 40 MG TAB PO SCH (21:07)
[2017-03-10] MEDS: ASPIRIN 81 MG ECTAB PO SCH (21:07)
[2017-03-10] MEDS: ATORVASTATIN 20 MG TAB PO SCH (21:07)
[2017-03-10] MEDS: DOCUSATE SODIUM/SENNA 50/8.6MG TAB PO SCH (21:08)
[2017-03-10] MEDS ORDERED: GADAVIST IV PRN (23:00)
--- NOTE | 2017-03-10 23:07 | DIAGNOSTIC IMAGING REPORT ---
MRI OF THE BRAIN COMBO CLINICAL HISTORY: Strokelike symptoms. COMPARISON STUDY: CT of the brain dated 03/10/2017. TECHNIQUE: MRI of the brain was performed utilizing various T1 and T2-weighted sequences in the axial, sagittal, and coronal planes. Contrast-enhanced sequences were acquired following the administration of 7 cc of Gadavist. FINDINGS: Brain parenchyma: There are age-related involutional changes noting mild subcortical and periventricular microangiopathic disease. There is no hemorrhage or mass effect. There is no restricted diffusion to suggest acute ischemia. No enhancing mass lesion is identified on the postcontrast images. Garibay-white matter differentiation is preserved. No extra-axial fluid collection is seen. The cerebellar tonsils are normal in configuration. Ventricles, sulci, and cisterns: Prominent secondary to involutional change. Pituitary and sella: Unremarkable. Intracranial vasculature: Normal flow voids are maintained at the skull base. Orbits: The bony orbits are grossly intact. Orbital contents are normal in appearance. Sinuses and mastoids: Clear. Calvarium: Unremarkable. Cervical cord: Partially visualized cervical spinal cord is normal in morphology and signal intensity. IMPRESSION: No acute intracranial abnormality. Electronically signed by: Savage Mcconnell M.D. 03/10/2017 11:05 PM Dictated Date/Time: 03/10/2017 11:02 PM
[2017-03-11] VITALS (13 sets, daily range): BP systolic 107–127; BP diastolic 54–83; PULSE 65–76; TEMP 36.5–37.1; O2SAT 95–99
[2017-03-11] MEDS: LEVOTHYROXINE 75 MCG TAB PO SCH (05:43)
[2017-03-11 06:33] LABS: HEMATOCRIT 24.2 % (37-47); MEAN CELL VOLUME 89.3 fL (80-100); MEAN CORPUSCULAR HEMOGLOBIN 29.2 pg (25-34); MEAN CORPUSCULAR HGB CONC 32.6 g/dl (32-36); MEAN PLATELET VOLUME 8.2 fL (7.4-10.4); PLATELET COUNT 242 K/uL (130-400); RED BLOOD COUNT 2.71 M/uL (4.2-5.4); WHITE BLOOD COUNT 9.84 K/uL (4.8-10.8)
[2017-03-11 07:17] LABS: BUN/CREATININE RATIO 24.5 (10-20); CALCIUM 8.3 mg/dl (8.5-10.1); CREATININE 0.58 mg/dl (0.60-1.20); MAGNESIUM 2.3 mg/dl (1.8-2.4); PHOSPHORUS 2.5 mg/dl (2.5-4.9); POTASSIUM 3.9 mmol/L (3.5-5.1)
[2017-03-11] MEDS: PANTOprazole SOD 40 MG TAB PO SCH (09:28)
[2017-03-11] MEDS: GEMFIBROZIL 600 MG TAB PO SCH ×2 (09:28→20:39)
[2017-03-11] MEDS: MAGNESIUM OXIDE 400 MG TAB PO SCH (09:28)
[2017-03-11] MEDS: LOSARTAN POTASSIUM 50 MG TAB PO SCH (09:29)
[2017-03-11] MEDS: AMLODIPINE BESYLATE 5 MG TAB PO SCH (09:29)
[2017-03-11] MEDS: METOPROLOL TARTRATE 100 MG TAB PO SCH (09:29)
--- NOTE | 2017-03-11 11:24 | Critical Care Progress Note ---
Critical Care Progress Note Date of Service Mar 11, 2017. ICU Day ICU Day Number: [address] Herman Subjective NO acute events overnight. Patient has no complaints. She denies fatigue weakness, numbness tingling, CP, SOB. She feels better in general Objective GENERAL: alert, no distress, non-toxic EYE EXAM: normal conjunctiva, PERRL and EOM's grossly intact LUNGS: Clear to auscultation. Normal chest wall mechanics HEART: no murmurs, S1 normal and S2 normal ABDOMEN: abdomen soft, non-tender, normo-active bowel sounds, no masses, no rebound or guarding. UPPER EXTREMITIES: upper extremities are grossly normal. LOWER EXTREMITIES: No pitting edema. NEURO EXAM: Normal sensorium, cranial nerves II-XII grossly intact, normal speech, no gross weakness of arms, no gross weakness of legs. Current SOFA Score SOFA Score Response (Comments) Value Platelets (x10) > 150 0 Bilirubin (mg/dL) < 1.2 0 Zoë Coma Score 15 0 Level of Hypotension No Hypotension 0 Creatinine (mg/dL) < 1.2 0 Total 0 Assessment & Plan 76 yo F w/ hx of HTN, HLD, Obesity, Hypothyroidism, Spinal stenosis, spondylolisthesis s/p Lumbar decompression/fusion POD 2 with episode of unresponsiveness with concomitant fecal incontinence, foaming from the mouth, RIght sided facial droop and RUE wekaness, now stable with complete resolution of neurological symptoms [facility]uro: Seizure vs TIA vs. CVA Did not meet criteria for TPA due to recent surgery GCS: 15 Pupils: Pinpoint, reactive, Focal Signs: none ( resolved completely) may have been secondary to Imtiaz's paralysis in setting of seizure vs. TIA EEG report pending MRI :no intracranial abnormality CT head dated (03/10) : Result: no acute intracranial abnormality CTA (03/10): unremarkable Per Neurology , seizure most likely etiology given the lack of findings on imaging for Stroke. No plan for anticonvulsant use for Seizure episode x1. Will need outpatient Neurology f/u with repeat EEG Respiratory: saturating well on Room air Chest X-ray: Reviewed: No evidence of focal pulmonary consolidation. Cardiovascular: HTN, HLD BP Controlled Rhythm: Sinus EKG: NSR, nonspecific t wave abnl , QTc 418 F/u Troponin ASA 81 mg daily Continue Statin, Amlodipine, Lopressor Fluids/Renal: IV Fluids: Fluids from intravenous medications Garvey: Present GI/Nutrition: Prophylaxis: On PPI Bowel movements:1 PRN Milk of Magnesia, Dulcolax Endocrine: Last 24 hour glucose: Ranging 127 to 130 Continue Synthroid Hematology: Hemoglobin 7.9 DVT prophylaxis: ASA 81 mg daily, SCD's, TEDs further chemical prophylaxis contraindicated due to recent surgery Psych Citalopram, Trazodone held Infectious Disease/Immunology: stable Tmax: 36.9 PT/OT Disposition: Stable to transfer to Med/Surg Resident Physician Supervision Note: Dr. Garcia was resident physician during care of patient. I separately evaluated patient and did history and exam. I discussed the case with the resident and generally agree with the findings and plan. I discussed this case with Dr. Partida and Dr. Davis. Patient feels very well and is at her baseline. She has likely had a new onset seizure, I have advised her that she cannot drive until she is cleared by neurology. I submitted a Department of Transportation reporting form. Patient also has mild hyponatremia , she was aware of this since October. I checked a TSH which is normal. I do not feel that the hyponatremia has caused the seizures as it appears to be chronic advised her to follow-up with her primary care provider for further evaluation. Patient is stable for downgraded out of the ICU. Documented By: Duncan Herman DO Consults & Procedures Consultants: Neurology Procedures: ] MRI OF THE BRAIN COMBO CLINICAL HISTORY: Strokelike symptoms. COMPARISON STUDY: CT of the brain dated 03/10/2017. TECHNIQUE: MRI of the brain was performed utilizing various T1 and T2-weighted sequences in the axial, sagittal, and coronal planes. Contrast-enhanced sequences were acquired following the administration of 7 cc of Gadavist. FINDINGS: Brain parenchyma: There are age-related involutional changes noting mild subcortical and periventricular microangiopathic disease. There is no hemorrhage or mass effect. There is no restricted diffusion to suggest acute ischemia. No enhancing mass lesion is identified on the postcontrast images. Garibay-white matter differentiation is preserved. No extra-axial fluid collection is seen. The cerebellar tonsils are normal in configuration. Ventricles, sulci, and cisterns: Prominent secondary to involutional change. Pituitary and sella: Unremarkable. Intracranial vasculature: Normal flow voids are maintained at the skull base. Orbits: The bony orbits are grossly intact. Orbital contents are normal in appearance. Sinuses and mastoids: Clear. Calvarium: Unremarkable. Cervical cord: Partially visualized cervical spinal cord is normal in morphology and signal intensity. IMPRESSION: No acute intracranial abnormality. ] CTA ANGIOGRAPHY OF THE HEAD CLINICAL HISTORY: Probable cerebrovascular accident. COMPARISON STUDY: Head CT performed earlier today. TECHNIQUE: Helical axial images of the head were obtained following uneventful intravenous administration of 113 cc of Optiray 320. A dose lowering technique was utilized adhering to the principles of ALARA. FINDINGS: The CTA of the neck will be reported separately. No acute intracranial hemorrhage, midline shift or mass effect is present. Ventricular system is normal. Basilar cisterns are patent. There are no extra-axial collections. Nasogastric tube is partially imaged. The bilateral M1, M2, A1 and A2 segments are patent. There is an anterior communicating artery. No abrupt vessel cutoff is identified. There is mild atherosclerotic plaque within the bilateral cavernous carotids. The posterior circulation is also intact. No aneurysm or dissection is identified within the intracranial vessels. IMPRESSION: Unremarkable CTA of the head. No vessel cut off or intracranial aneurysm. CT ANGIOGRAM OF THE NECK CLINICAL HISTORY: Change in mental status. COMPARISON STUDY: No priors. TECHNIQUE: Following the IV administration of 113 of Optiray 320, CT angiogram of the neck was performed from the aortic arch to the skull base. Images are reviewed in the axial, sagittal, and coronal planes. 3-D MIPS images are created and assessed. IV contrast was administered without complication. All measurements were calculated based on NASCET criteria. A dose lowering technique was utilized adhering to the principles of ALARA. The examination is modestly degraded by motion artifact. CT DOSE: 481.06 mGy.cm FINDINGS: Thoracic aorta: Visualized portions of the thoracic aorta are normal in caliber. The aortic arch demonstrates standard 3-vessel anatomy. Subclavian arteries: Widely patent bilaterally. Right carotid arterial system: The right common carotid artery is widely patent, as are the right internal and external carotid arteries. Left carotid arterial system: The left common carotid artery as well as the left internal and external carotid arteries are widely patent. Vertebral arteries: The vertebral arteries are widely patent and codominant. Intracranial vasculature: Intracranial vessels at the skull base are patent. See report of CT angiogram of the brain performed concurrently for detailed intracranial findings. Jugular veins: Widely patent bilaterally. Brain parenchyma: The visualized brain parenchyma the skull base is within normal limits. Lung apices: An nasal cannula is in place. Partially visualized upper lobe lung parenchyma appears clear. Soft tissues: The visualized pharyngeal soft tissues are normal in appearance noting angiographic phase technique. The oropharyngeal airway appears widely patent. The thyroid gland is markedly atrophic. The salivary glands are normal in appearance. No cervical lymphadenopathy is seen. Skeletal structures: The Skeletal structures are osteopenic. The visualized calvarium at the skull base is normal in appearance. The imaged cervical spine appears intact noting multilevel spondylosis. Sinuses and mastoids: There is evidence of previous paranasal sinus surgery. The visualized paranasal sinuses and mastoid air cells are clear. IMPRESSION: Unremarkable CT angiogram of the neck. CT HEAD WITHOUT CONTRAST (CT) CLINICAL HISTORY: CODE PURPLE UNRESPONSIVE PATIENT. MENTAL STATUS CHANGE. COMPARISON STUDY: No previous studies for comparison. TECHNIQUE: Axial CT of the brain is performed from the vertex to the skull base. IV contrast was not administered for this examination. A dose lowering technique was utilized adhering to the principles of ALARA. CT DOSE: 638.56 mGycm FINDINGS: No intra or extra-axial mass lesions are visualized. There is no CT evidence of acute cortical infarction. There is no evidence of midline shift. There is no acute hemorrhage. No calvarial fractures are visualized. If the patient's neurological status does not improve, an MRI of the brain might be considered in follow-up. There is no evidence of pathologic ventricular dilatation. There is no evidence of acute sinusitis IMPRESSION: No acute intracranial findings CHEST ONE VIEW PORTABLE CLINICAL HISTORY: Respiratory arrest COMPARISON STUDY: 10/28/2016 FINDINGS: The heart is mildly enlarged. There is aortic tortuosity. There is mild mediastinal fullness a finding which may be secondary to the AP portable technique. There is no lobar consolidation. There is no failure. There are no pleural effusions.[ IMPRESSION: AP portable study. No evidence of focal pulmonary consolidation. Mild mediastinal fullness, likely secondary to the AP technique. No evidence of overt failure. INTRAOPERATIVE LUMBAR SPINE 2 VIEWS CLINICAL HISTORY: Spinal fusion COMPARISON STUDY: Outside MRI dated 09/24/2016 FINDINGS: 20 seconds of fluoroscopic time was utilized. 2 intraoperative fluoroscopic spot films are provided for interpretation. There are postsurgical changes of a discectomy and interbody fusion at the L4-5 level. There is a grade 1 spondylolisthesis of L3 on L4. There is posterior spinal fusion with pedicle screws at the L3, L4 and L5 levels with adjoining spinal rods. IMPRESSION: Postsurgical changes as described above. Data Medications: Current Inpatient Medications Medications (Trade) Dose Ordered Sig/Prabhakar Route Start Time Stop Time Status Last Admin Dose Admin Promethazine HCl 12.5 mg/Sodium Chloride 50.5 ml @ 202 mls/hr Q6H PRN IV 03/08/17 13:15 04/07/17 13:14 Ondansetron HCl (Zofran Inj) 4 mg Q6H PRN IV 03/08/17 13:15 04/07/17 13:14 Metoclopramide HCl (Reglan Inj) 10 mg Q6H PRN IV 03/08/17 13:15 04/07/17 13:14 Lorazepam (Ativan Tab) 0.5 mg Q8H PRN PO 03/08/17 13:15 04/07/17 13:14 Lorazepam 0.5 mg/ Syringe 0.25 ml @ 1 mls/min Q8H PRN IV 03/08/17 13:15 04/07/17 13:14 Pneumococcal Polysaccharide Vaccine 1 ea PRN PRN N/A 03/08/17 13:15 04/07/17 13:14 Influenza Virus Vacc Triv Types A&B 1 ea PRN PRN N/A 03/08/17 13:15 04/07/17 13:14 Bisacodyl (Dulcolax Supp) 10 mg DAILY PRN DC 03/08/17 13:15 04/07/17 13:14 Magnesium Hydroxide (Milk Of Magnesia Susp) 30 ml DAILY PRN PO 03/08/17 13:15 04/07/17 13:14 03/10/17 11:32 30 ML Hydromorphone HCl (Dilaudid Inj) 0.5-1mg prn moder... Q3H PRN IV 03/09/17 06:00 03/23/17 05:59 Oxycodone HCl (Roxicodone Immediate Rel Tab) 5-10mg prn moderate to sev... Q4H PRN PO 03/09/17 06:00 03/23/17 05:59 03/09/17 23:53 5 MG Acetaminophen (Tylenol Tab) 1,000 mg Q8H PRN PO 03/08/17 13:15 04/07/17 13:14 Acetaminophen 100 ml @ 400 mls/hr Q8H PRN IV 03/08/17 13:15 04/07/17 13:14 Naloxone HCl (Narcan Inj) 0.1 mg Q5M PRN IV 03/08/17 13:15 04/07/17 13:14 Senna/Docusate Sodium (Senokot S Tab) 2 tab HS PO 03/08/17 21:00 04/07/17 20:59 03/10/17 21:08 2 TAB Sodium Biphosphate/ Sodium Phosphate (Fleet Enema) 132 ml ONE PRN DC 03/08/17 13:15 04/07/17 13:14 Hydroxyzine HCl (Vistaril Tab) 25 mg Q8H PRN PO 03/08/17 13:15 04/07/17 13:14 Al Hydroxide/Mg Hydroxide (Maalox Susp) 30 ml Q6H PRN PO 03/08/17 13:15 04/07/17 13:14 Famotidine (Pepcid Tab) 20 mg Q12 PRN PO 03/08/17 13:15 04/07/17 13:14 Diphenhydramine HCl (Benadryl Cap) 25 mg Q6H PRN PO 03/08/17 13:15 04/07/17 13:14 03/10/17 01:00 25 MG Amlodipine Besylate (Norvasc Tab) 5 mg QAM PO 03/09/17 09:00 04/08/17 08:59 03/11/17 09:29 5 MG Aspirin (Ecotrin Tab) 81 mg HS PO 03/08/17 21:00 04/07/17 20:59 03/10/17 21:07 81 MG Atorvastatin Calcium (Lipitor Tab) 20 mg HS PO 03/08/17 21:00 04/07/17 20:59 03/10/17 21:07 20 MG Citalopram Hydrobromide (celeXA TAB) 40 mg HS PO 03/08/17 21:00 04/07/17 20:59 03/10/17 21:07 40 MG Gemfibrozil (Lopid Tab) 600 mg BID PO 03/08/17 21:00 04/07/17 20:59 03/11/17 09:28 600 MG Levothyroxine Sodium (Synthroid Tab) 75 mcg DAILYBB PO 03/09/17 06:00 04/08/17 05:59 03/11/17 05:43 75 MCG Losartan Potassium (coZAAR TAB) 100 mg QAM PO 03/09/17 09:00 04/08/17 08:59 03/11/17 09:29 100 MG Magnesium Oxide (Mag-Ox Tab) 400 mg DAILY PO 03/09/17 09:00 04/08/17 08:59 03/11/17 09:28 400 MG Metoprolol Tartrate (Lopressor Tab) 50 mg HS PO 03/08/17 21:00 04/07/17 20:59 03/10/17 21:07 50 MG Metoprolol Tartrate (Lopressor Tab) 100 mg QAM PO 03/09/17 09:00 04/08/17 08:59 03/11/17 09:29 100 MG Pantoprazole Sodium (Protonix Tab) 40 mg QAM PO 03/09/17 09:00 04/08/17 08:59 03/11/17 09:28 40 MG Menthol (Nice Verito) 1 verito PRN PRN PO 03/08/17 19:00 04/07/17 18:59 03/08/17 19:34 1 VERITO Ioversol (Optiray 320) 113 ml UD PRN IV 03/10/17 16:15 03/14/17 16:14 Gadobutrol (Gadavist) 7 mmol UD PRN IV 03/10/17 23:00 03/14/17 22:59 Vital Signs: Date Time Temp Pulse Resp B/P (MAP) Pulse Ox O2 Delivery O2 Flow Rate FiO2 03/11/17 08:00 36.6 75 16 107/57 (74) 98 Room Air 03/11/17 08:00 Room Air 03/11/17 06:01 67 16 127/57 (80) 98 Oxymask 2.0 03/11/17 04:01 36.6 68 20 123/63 (83) 99 Oxymask 2.0 03/11/17 04:00 Oxymask 2.0 03/11/17 03:01 70 19 110/54 (72) 97 Oxymask 2.0 03/11/17 02:01 67 18 110/59 (76) 95 Oxymask 2.0 03/11/17 01:01 66 17 112/56 (74) 95 Oxymask 2.0 03/11/17 00:01 36.5 65 18 118/60 (79) 97 Oxymask 2.0 03/10/17 23:59 Oxymask 2.0 03/10/17 23:02 70 17 125/64 (84) Oxymask 2.0 03/10/17 22:00 77 26 96 Oxymask 2.0 03/10/17 20:00 Oxymask 2.0 03/10/17 20:00 36.7 70 17 95 Oxymask 2.0 03/10/17 18:00 36.7 78 17 122/63 (82) 93 Room Air 03/10/17 15:20 76 18 117/61 (79) 99 Oxyhood 3.0 03/10/17 15:13 75 100 15.0 03/10/17 11:51 36.9 68 14 138/72 (94) 94 Room Air Laboratory Results: Last 24 Hours Test 03/10/17 14:41 03/10/17 14:48 03/11/17 00:00 03/11/17 00:32 Bedside Glucose 141 mg/dl 107 mg/dl White Blood Count 19.69 K/uL Red Blood Count 3.03 M/uL Hemoglobin 9.1 g/dL Hematocrit 27.2 % Mean Corpuscular Volume 89.8 fL Mean Corpuscular Hemoglobin 30.0 pg Mean Corpuscular Hemoglobin Concent 33.5 g/dl RDW Standard Deviation 43.4 fL RDW Coefficient of Variation 13.3 % Platelet Count 316 K/uL Mean Platelet Volume 8.2 fL Prothrombin Time 10.0 SECONDS Prothromb Time International Ratio 0.9 Activated Partial Thromboplast Time 23.1 SECONDS Partial Thromboplastin Ratio 0.9 Sodium Level 131 mmol/L Potassium Level 3.7 mmol/L Chloride Level 95 mmol/L Carbon Dioxide Level 24 mmol/L Anion Gap 11.0 mmol/L Blood Urea Nitrogen 19 mg/dl Creatinine 0.98 mg/dl Est Creatinine Clear Calc Drug Dose 46.9 ml/min Estimated GFR () 65.9 Estimated GFR (Non- 56.8 BUN/Creatinine Ratio 19.6 Random Glucose 127 mg/dl Calcium Level 8.3 mg/dl Magnesium Level 2.2 mg/dl Total Bilirubin 0.4 mg/dl Direct Bilirubin 0.1 mg/dl Aspartate Amino Transf (AST/SGOT) 29 U/L Alanine Aminotransferase (ALT/SGPT) 17 U/L Alkaline Phosphatase 56 U/L Ammonia 32.4 umol/L Troponin I < 0.015 ng/ml Total Protein 6.4 gm/dl Albumin 3.4 gm/dl Thyroid Stimulating Hormone (TSH) 1.660 uIu/ml Test 03/11/17 05:46 03/11/17 06:15 Bedside Glucose 101 mg/dl White Blood Count 9.84 K/uL Red Blood Count 2.71 M/uL Hemoglobin 7.9 g/dL Hematocrit 24.2 % Mean Corpuscular Volume 89.3 fL Mean Corpuscular Hemoglobin 29.2 pg Mean Corpuscular Hemoglobin Concent 32.6 g/dl RDW Standard Deviation 42.9 fL RDW Coefficient of Variation 13.2 % Platelet Count 242 K/uL Mean Platelet Volume 8.2 fL Sodium Level 130 mmol/L Potassium Level 3.9 mmol/L Chloride Level 95 mmol/L Carbon Dioxide Level 28 mmol/L Anion Gap 7.0 mmol/L Blood Urea Nitrogen 14 mg/dl Creatinine 0.58 mg/dl Est Creatinine Clear Calc Drug Dose 79.2 ml/min Estimated GFR () 105.2 Estimated GFR (Non- 90.8 BUN/Creatinine Ratio 24.5 Random Glucose 88 mg/dl Calcium Level 8.3 mg/dl Phosphorus Level 2.5 mg/dl Magnesium Level 2.3 mg/dl Resident Tracking Resident Involvement: Resident Care Provided Care Provided: Adult Hospital Medicine
--- NOTE | 2017-03-11 12:00 | Progress Note ---
Progress Note Date of Service Mar 11, 2017. Progress Note Patient is doing wonderfully this morning. She feels that her strength and cognition is returned almost normal. Again she has no significant back pain no leg pain. Still concerned about her bowel movements. On exam she sitting up in bed alert oriented 3. Excellent strength testing both upper and lower extremities. The drain has been DC'd and the dressing changed. Is clean dry and intact. Assessment status post lumbar decompression fusion replant this time we will transfer her back to the [facility]. Continue to observe her and hopefully discharge home tomorrow.
--- NOTE | 2017-03-11 12:36 | CONSULTATION REPORT ---
DATE OF CONSULTATION: 03/11/[address] Brennen Davis. Ingris is 76 years old, is a patient of Katie Rivera PA-C of [facility] and was admitted for lumbar stenosis surgery on Wednesday. She was doing well postoperatively and was on some narcotic analgesics and had not taken her regular Xanax which she has been doing on a nightly basis since admission. She was conversing with friends, had the urge to urinate and perhaps defecate and was getting anxious that they needed to leave, so she could attend her business. Suddenly she became unresponsive, had some tonic posturing and then became incontinent of stool and was seen to have seizure-like activity. After this event occurred at about 3:00, she remained confused. There was some concern about a right-sided weakness and slurred or aphasic speech. Stroke alert was called. [facility] appropriately felt she was not a TPA candidate because of her recent surgery, etc. A CTA was done which showed no evidence for intracranial stenoses or vessel cutoff. EKG showed no atrial fibrillation. A CAT scan was initially negative and subsequent MRI showed no evidence for acute infarctions. An EEG was done which was a little technically limited due to some muscle movement artifact and showed some marginal evidence for some slow wave activity in the left hemisphere which unfortunately was confounded by the fact that there appeared to be a C3 left hemispheric electrode artifact. I interpreted the study as essentially normal with some marginal evidence for left hemisphere slowing. There certainly was no potentially epileptogenic activity. All of this occurs in the setting of hypertension, hyperlipidemia, obesity, hypothyroidism and spinal stenosis and status post lumbar decompression 2 days ago. MEDICATIONS: At home include Xanax 0.5 mg at bedtime only, amlodipine, aspirin, atorvastatin, Celexa, gemfibrozil, ibuprofen, levothyroxine, losartan, magnesium oxide, metoprolol, and omeprazole. As needed medications include oxycodone which she claims she was not taking very often. ALLERGIES: SHE HAS ALLERGIES TO SULFA. CURRENT MEDICATIONS: Reviewed and all of this has been added as Reglan as needed for nausea, oxycodone and hydromorphone as needed which she has been taking in low doses. The physical examination on admission was unremarkable with the exception of her moderate overnourishment. Neurologically when I saw her briefly last night, she was alert but had very dysarthric speech, its content was difficult to assess. There may have been a mild degree of right-sided weakness but I was not overly impressed. By the time I saw her however, the degree of weakness had improved significantly, according to the nursing staff. Today, she is awake, alert, oriented in 3 spheres. Has no complaints, has normal extraocular movements, normal visual del valle, normal facial motility and strength, clear speech. No aphasic tendencies. There is no drift or pronation sign, tremor, tics, choreiform activity. Reflexes are 1+. Toes are down. No Hawa signs are seen. Strength is excellent. Gross sensation is intact. At this point, I suspect she did indeed have a seizure. Whether this was mediated by some hypotension related to her need to defecate and urinate or the effect of some medications is something I do not think we are ever going to establish. She has no evidence for an acute vascular event, intracranial stenosis, a lesion that might produce seizures on her MRI and her EEG is at most marginally abnormal in a highly nonspecific fashion. In this setting, I am reluctant to recommend anticonvulsant therapies as I believe it is a one-time event related to the stress of surgery, perhaps sleep deprivation, perhaps medications, perhaps an element of Xanax withdrawal and I would hate to commit her to a long-term anticonvulsant regimen based on this single episode. Unfortunately, she will have to meet criteria from the [facility] nonoperated motor vehicle for 6 months and she seems to be in agreement with this. She is certainly fine with not adding another drug to her drug regimen. I discussed the case with the ICU staff. At this point we are simply going to observe her. We will probably take a look at her in neurology in about 6 weeks' time at [facility] and I may schedule an outpatient ambulatory EEG monitoring study, just to be sure there is no potentially epileptogenic activity that we might have missed on a short inpatient EEG. PRIYANK
[2017-03-11] MEDS: DOCUSATE SODIUM/SENNA 50/8.6MG TAB PO SCH (20:39)
[2017-03-11] MEDS: CITALOPRAM 40 MG TAB PO SCH (20:39)
[2017-03-11] MEDS: ATORVASTATIN 20 MG TAB PO SCH (20:39)
[2017-03-11] MEDS: ASPIRIN 81 MG ECTAB PO SCH (20:39)
[2017-03-11] MEDS: METOPROLOL TARTRATE 50 MG TAB PO SCH (20:39)
[2017-03-12] MEDS: LEVOTHYROXINE 75 MCG TAB PO SCH (05:50)
--- NOTE | 2017-03-12 07:12 | ELECTROENCEPHALOGRAPH REPORT ---
REQUESTING: Villa Partida MD. CLINICAL DIAGNOSIS: Possible seizure with post-event right hemiparesis, now resolving. ELECTROENCEPHALOGRAM DIAGNOSIS: Marginally abnormal EEG with intermittent focal slowing, left hemisphere maximum central regions. DESCRIPTION OF TRACING: This EEG was done as a bedside recording in the ICU and is of reasonable technical quality allowing for some muscle movement artifacts which interfere with interpretation of initial phase of the recording. Photic stimulation was performed, but again there was quite a bit of muscle movement artifacts throughout the tracing, and the presence or absence of photic stimulation induced photomyogenic or photoparoxysmal responses could not be established. After the initial phases of the recording, the patient's video demonstrates less agitated behavior and the tracing becomes much for interpretable. During these intervals, the background rhythm is in the alpha range of up to 9 Hz of maximum frequency and 30 microvolts of maximum amplitude and is bilaterally symmetrical. Polymorphic mid frequency theta activity is seen over all head regions with a slight predominance in terms of amplitude and perhaps slightly lower frequency seen intermittently in the left central regions now. Unfortunately, as the tracing progresses it becomes clear that there is a C3 electrode artifact which corresponds to the areas of questionable slowing seen earlier. This emerges after a period of head movement and rotation persists throughout most of the reminder of the recording. Anterior head region maximum bilaterally symmetrical low voltage fast activity in the beta range is present. INTERPRETATION: This electroencephalogram is somewhat technically limited due to a lot of muscle movement artifacts early on but later when the tracing becomes more interpretable, there are some subtle evidence for slowing over the left central regions but unfortunately this also corresponds to potential C3 electrode artifact in the same zone. At most this EEG suggests minimal focal abnormalities in the left hemisphere, but may well be quite normal and there is certainly no evidence for potentially epileptogenic activity in the form of polyspike or spike wave bursts, focal sharp waves or focal spikes. Clinical correlation is required.
[2017-03-12 07:21] VITALS: BP 110/57; PULSE 69; TEMP 36.7; O2SAT 90
[2017-03-12] MEDS: GEMFIBROZIL 600 MG TAB PO SCH (08:28)
[2017-03-12] MEDS: LOSARTAN POTASSIUM 50 MG TAB PO SCH (08:28)
[2017-03-12] MEDS: PANTOprazole SOD 40 MG TAB PO SCH (08:28)
[2017-03-12] MEDS: AMLODIPINE BESYLATE 5 MG TAB PO SCH (08:29)
[2017-03-12] MEDS: MAGNESIUM OXIDE 400 MG TAB PO SCH (08:29)
[2017-03-12] MEDS: METOPROLOL TARTRATE 100 MG TAB PO SCH (08:29)
[2017-03-12 13:15] VITALS: BP 110/57; PULSE 69; TEMP 36.7; O2SAT 90
--- NOTE | 2017-03-12 13:18 | Discharge Summary ---
Orthopedic Discharge Summary Admission Date/Reason Mar 08, 2017 at 11:14 Lumbar Spinal Stenosis. Discharge Date/Disposition Mar 12, 2017 Home Diagnosis Principal Diagnosis: Lumbar spinal stenosis Admission Physical Exam As per Admitting History & Physical. Hospital Course Patient underwent lumbar decompression fusion tolerated and sewn taken to the orthopedic floor postoperatively. Postoperative day #1 she was ambulatory improving nicely postop day #2 unforeseen postoperative day #3 she had what suspect to be a epileptic episode. It is still not quite determined. Nevertheless she resolved is neurologically intact alert and oriented subsequently clinically discharged home with follow-up to neurology. Discharge orders and instructions found the chart for further review. Discharge Instructions Please refer to the electronic Patient Visit Report (Discharge Instructions) for additional information.
== END 2017-03-12 14:10 | disposition home or self-care (01) | DRG 455 ==
LOC: C.ACU 10:14 → C.3E 11:14 → ENRESERV 15:07 → C.MSICU 03-10 15:33 → ENRESERV 03-11 12:12 → C.MSW 03-11 12:54
PROVIDERS: ADMIT Orthopaedic Surgery Orthopaedic Surgery of the Spine; ATTEND Orthopaedic Surgery Orthopaedic Surgery of the Spine
PROC: 0SG0071 Fusion of Lumbar Vertebral Joint with Autologous Tissue Substitute, Posterior Approach, Posterior Column, Open Approach (ICD-10-PCS; principal; 2017-03-08 12:15)
PROC: 0SG00AJ Fusion of Lumbar Vertebral Joint with Interbody Fusion Device, Posterior Approach, Anterior Column, Open Approach (ICD-10-PCS; principal; 2017-03-08 12:15)
PROC: 0ST20ZZ Resection of Lumbar Vertebral Disc, Open Approach (ICD-10-PCS; principal; 2017-03-08 12:15)
DX: M48.061 Spinal stenosis, lumbar region without neurogenic claudication (principal); M43.16 Spondylolisthesis, lumbar region; R56.9 Unspecified convulsions; R15.9 Full incontinence of feces; I10 Essential (primary) hypertension; E78.5 Hyperlipidemia, unspecified; E03.9 Hypothyroidism, unspecified; E66.9 Obesity, unspecified; Z79.82 Long term (current) use of aspirin; Z79.899 Other long term (current) drug therapy; Z68.29 Body mass index [BMI] 29.0-29.9, adult